=== PATIENT | male | born 1980 | race African-American/Black ===

== ENCOUNTER 2024-12-27 13:08 | Emergency (ER) | payer SELFPAY ==
--- NOTE | 2024-12-27 14:00 | RAD REPORT ---
EXAM: Chest Single View HISTORY: Congestion;Cough;Fever COMPARISON: None. FINDINGS: LUNGS/PLEURA: Very mild nodularity noted at the right lung base. MEDIASTINUM: The mediastinal silhouette is within normal limits. CARDIAC: The cardiac silhouette is within normal limits. UPPER ABDOMEN: No significant abnormality. BONES: No acute abnormality. LINES/TUBES/OTHER: N/A IMPRESSION: Very mild right lower lobe nodularity could reflect mild infection. No consolidative pneumonia or blanca ma.
[2024-12-27] MEDS ORDERED: NA CHLORIDE 0.9% 1,000 ML ONE (14:20)
[2024-12-27 14:32] LABS: Absolute Basophils 0.1 K/uL (0-0.5); Absolute Eosinophils 0.1 K/uL (0-0.5); Absolute Lymphocytes (CBC) 4.3 K/uL (0.7-4.9); Absolute Monocytes 0.9 K/uL (0.1-1.3); Basophils % 0.7 % (0-1.3); Eosinophils % 0.9 % (0-4.4); Hematocrit 42.1 % (39.6-49.0); Hemoglobin 15.4 g/dL (13.6-17.9); MCH 32.1 pg (27.0-35.0); MCHC 36.6 g/dL (32.0-36.0); MCV 87.9 fL (80-100); MPV 7.9 fL (7.6-11.3); Monocytes % 6.7 % (3.3-12.3); Neutrophils % 59.7 % (41.7-73.7); Nucleated Red Blood Cells % 0.1 % (0-0); Platelets 184 thou/uL (152-406); RBC Red Blood Cell Count 4.79 M/uL (4.33-5.43); Red Cell Distribution Width 13.3 % (12.1-15.2)
[2024-12-27 14:44] LABS: PT Prothrombin Time 13.5 SECONDS (9.4-12.5); PTT, Activated Partial Thromb 30.1 SECONDS (24.3-36.9); Protime INR 1.29
[2024-12-27 14:47] LABS: SARS-CoV-2 Antigen CONTROL BLUE LINE VIS/BG OK; SARS-CoV-2 Antigen Rapid Res Negative (Negative)
[2024-12-27 14:49] LABS: Albumin 2.6 g/dL (3.4-5.0); Albumin/Globulin Ratio 0.5 (1.1-1.8); Anion Gap 10.9 mEq/L (5.0-15.0); Bilirubin Total 0.6 mg/dL (0.2-1.0); Globulin 5.7 g/dL (2.3-3.5); Potassium 3.9 mEq/L (3.5-5.1); Protein, Total 8.3 g/dL (6.4-8.2)
[2024-12-27] MEDS ORDERED: NA CHLORIDE 0.9% 250 ML ONE (15:40)
[2024-12-27] MEDS ORDERED: IPRATROPIUM BROM 0.5MG/2.5ML ONE (15:40)
[2024-12-27] MEDS ORDERED: METHYLPREDNISOLONE 40 MG INJ ONE (15:40)
[2024-12-27] MEDS ORDERED: CEFTRIAXONE 1000 MG/VIAL ONE (15:40)
[2024-12-27] MEDS ORDERED: AZITHROMYCIN 500 MG INJ IVPB ONE (15:40)
[2024-12-27] MEDS ORDERED: ALBUTEROL 2.5 MG/3 ML NEB SOL ONE (15:40)
[2024-12-27] MEDS ORDERED: DICYCLOMINE HCL 20 MG/2 ML AMP IM ONE (16:28)
[2024-12-27] MEDS ORDERED: ONDANSETRON 4 MG/2 ML VIAL ONE (17:05)
--- NOTE | 2024-12-27 17:35 | ER ---
Nurse's Notes [facility] Name: Linden Khoury Age: 44 yrs Sex: Male : 1980 Arrival Date: 12/27/2024 Time: 13:08 Bed 12 Private MD: Diagnosis: Pneumonia, unspecified organism Presentation: 12/27 13:17 Chief complaint: Patient states: Fever, cough, congestion, seating, fatigue, SOB for 8 ll1 days. Fever 102 at home. Coronavirus screen: Client denies travel out of the [place] in the last 14 days. congestion, cough unrelated to allergies, fatigue, Client presents with at least one sign or symptom that may indicate coronavirus-19. Standard/surgical mask placed on the client. Ebola Screen: Patient denies travel to an Ebola-affected area in the 21 days before illness onset. Initial Sepsis Screen: Does the patient meet any 2 criteria? No. Patient's initial sepsis screen is negative. Does the patient have a suspected source of infection? No. Patient's initial sepsis screen is negative. Risk Assessment: Do you want to hurt yourself or someone else? Patient reports no desire to harm self or others. Onset of symptoms was December 19, 2024. 13:17 Method Of Arrival: Ambulatory ll1 13:17 Acuity: SAAD 4 ll1 Historical: - Allergies: 13:15 No Known Allergies; ll1 - Home Meds: 13:15 victarvi [Active]; Lexapro Oral [Active]; vit D [Active]; ll1 - PMHx: 13:36 HIV positive; Hepatitis; sb4 - PSHx: 13:15 None; ll1 - Immunization history:: Adult Immunizations up to date. - Infectious Disease History:: Denies. - Social history:: Smoking status: Patient reports the use of cigarette tobacco products, denies chronic smoking, but will smoke occasionally. Screenin:40 [facility] ED Fall Risk Assessment (Adult) History of falling in the last 3 months, aa5 including since admission No falls in past 3 months (0 pts) Confusion or Disorientation No (0 pts) Intoxicated or Sedated No (0 pts) Impaired Gait No (0 pts) Mobility Assist Device Used No (0 pt) Altered Elimination No (0 pt) Score/Fall Risk Level 0 - 2 = Low Risk Oriented to surroundings, Maintained a safe environment, Educated pt \T\ family on fall prevention, incl call for assistance when getting out of bed. Abuse screen: Denies threats or abuse. Nutritional screening: No deficits noted. Tuberculosis screening: No symptoms or risk factors identified. Assessment: 14:20 General: Appears uncomfortable, Behavior is calm, cooperative, Reports chills. Pain: aa5 Denies pain. Neuro: Level of Consciousness is awake, alert, obeys commands, Oriented to person, place, time, situation. Cardiovascular: Heart tones S1 S2 present Rhythm is regular. Respiratory: Reports cough Airway is patent Respiratory effort is even, unlabored, Respiratory pattern is regular, symmetrical. GI: Abdomen is non-distended, Bowel sounds present X 4 quads. Abd is soft and non tender X 4 quads. : No signs and/or symptoms were reported regarding the genitourinary system. EENT: Reports nasal congestion. Derm: Skin is dry, Skin is normal, Skin temperature is warm. Musculoskeletal: Range of motion: intact in all extremities. 15:40 Neuro: Level of Consciousness is awake, alert, obeys commands, Oriented to person, aa5 place, time, situation. Respiratory: Airway is patent Respiratory effort is even, unlabored, Respiratory pattern is regular, symmetrical. Derm: Skin is dry, Skin is normal, Skin temperature is warm. 16:30 Neuro: Level of Consciousness is awake, alert, obeys commands, Oriented to person, aa5 place, time, situation. Respiratory: Airway is patent Respiratory effort is even, unlabored, Respiratory pattern is regular, symmetrical. Derm: Skin is dry, Skin is normal, Skin temperature is warm. 16:59 Reassessment: Pt sleeping . aa5 17:20 Reassessment: Pt sleeping. . aa5 17:20 Reassessment: Patient states feeling better. Patient states symptoms have improved. aa5 17:40 Reassessment: Arleen MARQUEZ at [facility] called for update, will be here in 30 mins to hb pickup patient. Vital Signs: 13:17 BP 127 / 93; Pulse 98; Resp 18; Temp 99; Pulse Ox 99% on R/A; Weight 77.11 kg; Height 5 ll1 ft. 8 in. ; Pain 8/10; 15:30 BP 103 / 69; Pulse 102; Resp 20 S; Temp 99.1(O); Pulse Ox 98% on R/A; aa5 16:30 BP 126 / 70; Pulse 100; Resp 18 S; Temp 99.2(O); Pulse Ox 98% on R/A; aa5 17:20 BP 124 / 70; Pulse 88; Resp 19 S; Temp 99(O); Pulse Ox 99% on R/A; aa5 13:17 Body Mass Index 25.85 (77.11 kg, 172.72 cm) ll1 13:17 Pain Scale: Adult ll1 ED Course: 13:12 Patient arrived in ED. sj2 13:12 Linda Greenfield PA-C is PHCP. sb4 13:12 Uriel Florence MD is Attending Physician. sb4 13:18 Triage completed. ll1 13:18 Arm band placed on Patient placed in an exam room, on a stretcher. ll1 13:49 Mattie Brewster, RN is Primary Nurse. aa5 13:56 Chest Single View XRAY In Process Unspecified. EDMS 14:01 SARS RAPID Sent. hb 14:01 Flu Sent. hb 14:05 First set of blood cultures drawn by me. aa5 14:15 Patient has correct armband on for positive identification. Bed in low position. Call aa5 light in reach. Side rails up X2. Client placed on continuous cardiac and pulse oximetry monitoring. NIBP monitoring applied. cleaning crew member on. Pulse ox on. NIBP on. 14:15 Initial lab(s) drawn, by me, sent to lab. Second set of blood cultures drawn by me. aa5 14:18 Inserted saline lock: 20 gauge in left forearm, using aseptic technique. Flushed with aa5 10 mL NS. 17:48 No provider procedures requiring assistance completed. IV discontinued, intact, hb bleeding controlled, No redness/swelling at site. Pressure dressing applied. Administered Medications: 14:20 Drug: NS 0.9% IV 1000 ml IV at 1 bolus Per protocol; to be given as a bolus over 60 aa5 minutes Route: IV; Rate: 1 bolus; Site: left forearm; 15:40 Follow up: IV Status: Completed infusion; IV Intake: 1000ml aa5 15:40 Drug: Rocephin IV 1 grams IV at calculated rate once; Given slow IV push per pharmacy aa5 instructions Route: IV; Rate: calculated rate; Site: left forearm; 15:45 Follow up: Response: No adverse reaction; IV Status: Completed infusion aa5 15:40 Drug: MethylPrednisoLONE IVP 60 mg IVP once Route: IVP; Site: left forearm; aa5 15:50 Follow up: Response: No adverse reaction aa5 15:50 Drug: AZITHromycin IVPB 500 mg IVPB once over 1 hrs; (mix in 250 mL NS) Route: IVPB; aa5 Infused Over: 1 hrs; Site: left forearm; 16:59 Follow up: IV Status: Completed infusion; IV Intake: 250ml aa5 15:50 Drug: DuoNeb Nebulize (3:1) (2.5 mg - 0.5 mg) 3 ml Nebulizer once Route: Nebulizer; aa5 16:00 Follow up: Response: No adverse reaction aa5 16:50 Not Given (Patient Refused): [id number] mg IM once aa5 17:20 Drug: Ondansetron IVP 4 mg IVP once; over 2 minutes Route: IVP; Site: left forearm; aa5 17:25 Follow up: Response: No adverse reaction aa5 Medication: 17:20 VIS not applicable for this client. aa5 Intake: 15:40 IV: 1000ml; Total: 1000ml. aa5 16:59 IV: 250ml; Total: 1250ml. aa5 Outcome: 17:35 Discharge ordered by . sb4 17:48 Discharged to home ambulatory, hb 17:48 Condition: stable 17:48 Discharge instructions given to patient, Instructed on discharge instructions, follow up and referral plans. medication usage, Demonstrated understanding of instructions, follow-up care, medications, Prescriptions given X 4, 18:01 Patient left the ED. hb Signatures: Dispatcher [employer] EDMS Mattie Brewster RN RN aa5 Charity Benton RN RN hb Lewis, Lynsay, RN RN ll1 Linda Greenfield PA-C PAJennifer sb4 Mekhi Carmona2 Corrections: (The following items were deleted from the chart) 13:36 13:15 PMHx: None; ll1 sb4 19:03 15:40 Patient has correct armband on for positive identification. Bed in low position. aa5 Call light in reach. Side rails up X2. aa5 19:03 15:40 Client placed on continuous cardiac and pulse oximetry monitoring. NIBP aa5 monitoring applied. cleaning crew member on. Pulse ox on. NIBP on. aa5
--- NOTE | 2024-12-27 17:35 | EDPHYS ---
Physician Documentation [facility] Name: Linden Khoury Age: 44 yrs Sex: Male : 1980 Arrival Date: 12/27/2024 Time: 13:08 Bed 12 Private MD: ED Physician Uriel Florence HPI: 12/27 13:26 This 44 yrs old Black Male presents to ER via Ambulatory with complaints of Fever, Flu sb4 Symptoms. 13:26 patient reports cough, congestion, sore throat, flu like symptoms, fever x 1 week. 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 reports some sob. has taken some ibuprofen and dayquil intermittently. Historical: - Allergies: 13:15 No Known Allergies; ll1 - Home Meds: 13:15 victarvi [Active]; Lexapro Oral [Active]; vit D [Active]; ll1 - PMHx: 13:36 HIV positive; Hepatitis; sb4 - PSHx: 13:15 None; ll1 - Immunization history:: Adult Immunizations up to date. - Infectious Disease History:: Denies. - Social history:: Smoking status: Patient reports the use of cigarette tobacco products, denies chronic smoking, but will smoke occasionally. ROS: 13:26 Cardiovascular: Negative for chest pain, palpitations, and edema, sb4 13:26 Constitutional: Positive for body aches, chills, fatigue, fever, malaise, 13:26 ENT: Positive for sore throat, 13:26 Respiratory: Positive for cough, shortness of breath, 13:26 Abdomen/GI: Positive for nausea, 13:26 All other systems are negative, Exam: 13:31 Head/Face: Normocephalic, atraumatic. Eyes: Extra-ocular motions intact. Periorbital sb4 areas with no swelling, redness, or edema. ENT: Mucous membranes moist. Cardiovascular: Regular rate and rhythm with a normal S1 and S2. Abdomen/GI: Soft, non-tender, no distension. Skin: Warm, dry with normal turgor. Normal color with no rashes, no lesions, and no evidence of cellulitis. 13:31 Constitutional: The patient appears alert, awake, obviously ill, uncomfortable, 13:31 Respiratory: the patient does not display signs of respiratory distress, Respirations: normal, Breath sounds: rhonchi, that are mild, are scattered, Vital Signs: 13:17 BP 127 / 93; Pulse 98; Resp 18; Temp 99; Pulse Ox 99% on R/A; Weight 77.11 kg; Height 5 ll1 ft. 8 in. ; Pain 8/10; 15:30 BP 103 / 69; Pulse 102; Resp 20 S; Temp 99.1(O); Pulse Ox 98% on R/A; aa5 16:30 BP 126 / 70; Pulse 100; Resp 18 S; Temp 99.2(O); Pulse Ox 98% on R/A; aa5 17:20 BP 124 / 70; Pulse 88; Resp 19 S; Temp 99(O); Pulse Ox 99% on R/A; aa5 13:17 Body Mass Index 25.85 (77.11 kg, 172.72 cm) ll1 13:17 Pain Scale: Adult ll1 MDM: 13:12 Medical Screening Exam initiated sb4 16:21 ED course: patient is now complaining of abdominal cramping and nausea after receiving sb4 medications. 17:15 Data reviewed: vital signs, nurses notes, lab test result(s), radiologic studies, and sb4 as a result, I will discharge patient. Counseling: I had a detailed discussion with the patient and/or guardian regarding the historical points, exam findings, and any diagnostic results supporting the discharge/admit diagnosis, lab results, radiology results, the need for outpatient follow up, for definitive care, to return to the emergency department if symptoms worsen or persist or if there are any questions or concerns that arise at home. 12/27 13:25 Order name: Blood Culture Adult (2) sb4 12/27 13:25 Order name: CBC with Diff; Complete Time: 14:46 sb4 12/27 13:25 Order name: CMP; Complete Time: 14:55 sb4 12/27 13:25 Order name: Lactate w/ 2H reflex if indic.; Complete Time: 14:55 sb4 12/27 13:25 Order name: Protime (+inr); Complete Time: 14:46 sb4 12/27 13:25 Order name: Ptt, Activated; Complete Time: 14:46 sb4 12/27 13:25 Order name: SARS RAPID; Complete Time: 14:55 sb4 01/31 13:25 Order name: Flu; Complete Time: 14:55 4 12/27 13:25 Order name: Chest Single View XRAY; Complete Time: 14:03 12/27 13:25 Order name: Cardiac monitoring; Complete Time: 14:18 12/27 13:25 Order name: IV Saline Lock - Large Bore; Complete Time: 14:18 4 12/27 13:25 Order name: Labs collected and sent; Complete Time: 14:18 12/27 13:25 Order name: O2 Per Protocol; Complete Time: 13:50 12/27 13:25 Order name: O2 Sat Monitoring; Complete Time: 13:50 12/27 13:25 Order name: Vital Signs; Complete Time: 13:50 sb4 Administered Medications: 14:20 Drug: NS 0.9% IV 1000 ml IV at 1 bolus Per protocol; to be given as a bolus over 60 aa5 minutes Route: IV; Rate: 1 bolus; Site: left forearm; 15:40 Follow up: IV Status: Completed infusion; IV Intake: 1000ml aa5 15:40 Drug: Rocephin IV 1 grams IV at calculated rate once; Given slow IV push per pharmacy aa5 instructions Route: IV; Rate: calculated rate; Site: left forearm; 15:45 Follow up: Response: No adverse reaction; IV Status: Completed infusion aa5 15:40 Drug: MethylPrednisoLONE IVP 60 mg IVP once Route: IVP; Site: left forearm; aa5 15:50 Follow up: Response: No adverse reaction aa5 15:50 Drug: AZITHromycin IVPB 500 mg IVPB once over 1 hrs; (mix in 250 mL NS) Route: IVPB; aa5 Infused Over: 1 hrs; Site: left forearm; 16:59 Follow up: IV Status: Completed infusion; IV Intake: 250ml aa5 15:50 Drug: DuoNeb Nebulize (3:1) (2.5 mg - 0.5 mg) 3 ml Nebulizer once Route: Nebulizer; aa5 16:00 Follow up: Response: No adverse reaction aa5 16:50 Not Given (Patient Refused): [id number] mg IM once aa5 17:20 Drug: Ondansetron IVP 4 mg IVP once; over 2 minutes Route: IVP; Site: left forearm; aa5 17:25 Follow up: Response: No adverse reaction aa5 Disposition Summary: 12/27/24 17:35 Discharge Ordered Notes: Location: Home sb4 Problem: new sb4 Symptoms: have improved sb4 Condition: Stable sb4 Diagnosis - Pneumonia, unspecified organism sb4 Followup: sb4 - With: Emergency Department - When: As needed - Reason: Trouble breathing, Worsening of condition Discharge Instructions: - Discharge Summary Sheet sb4 - Community-Acquired Pneumonia, Adult sb4 Forms: - Antibiotic Education sb4 - Patient Portal Instructions sb4 - Leadership Thank You Letter sb4 Prescriptions: - albuterol sulfate 90 mcg/actuation Inhalation HFA Aerosol Inhaler - inhale 1 puff INHALATION route every 6 hours PRN shortness of breath or sb4 wheezing; 1 Applicator; Refills: 0, Product Selection Permitted - Amoxicillin 875 mg Oral Tablet - take 1 tablet ORAL route every 12 hours for 10 days; 20 tablet; Refills: 0, sb4 Product Selection Permitted - Prednisone 20 mg Oral Tablet - take 1 tablet ORAL route once daily for 5 days; 5 tablet; Refills: 0, Product sb4 Selection Permitted - Zithromax 500 mg Oral Tablet - take 1 tablet ORAL route once daily for 3 days; 3 tablet; Refills: 0, Product sb4 Selection Permitted Signatures: Dispatcher [employer] Mattie Escalante RN RN aa5 Ry Rosado RN RN ll1 Linda Greenfield PA-C PAJennifer sb4 Corrections: (The following items were deleted from the chart) 13:26 13:26 BLOOD CULTURE*+BA.LAB.BRZ ordered. EDMS EDMS 13: 13:26 CBC+H.LAB.BRZ ordered. EDMS EDMS 13: 13:26 COMPREHENSIVE METABOLIC PANEL+C.LAB.BRZ ordered. EDMS EDMS 13: 13:26 LACTATE+C.LAB.BRZ ordered. EDMS EDMS 13:26 13:26 PROTIME (+INR)+COAG.LAB.BRZ ordered. EDMS EDMS 13: 13:26 PTT, ACTIVATED+COAG.LAB.BRZ ordered. EDMS EDMS 13:26 13:26 SARS-COV-2 Antigen Rapid+I.LAB.BRZ ordered. EDMS EDMS 13: 13:26 Influenza Screen (A \T\ B)+BA.LAB.BRZ ordered. EDMS EDMS 13:26 Chest Single View+RAD.RAD.BRZ ordered. EDMS EDMS 13:36 13:15 PMHx: None; ll1 sb4
[2024-12-27 18:15] VITALS: BP 126/70; TEMP 99.2; O2SAT 98
== END 2024-12-27 18:01 | disposition home or self-care (01) ==
LOC: ER 13:08
DX: J18.9 Pneumonia, unspecified organism (principal); F17.210 Nicotine dependence, cigarettes, uncomplicated; Z11.52 Encounter for screening for COVID-19; Z21 Asymptomatic human immunodeficiency virus [HIV] infection status
CPT/HCPCS: 36415; 71045; 80053; 83605; 85025; 85610; 85730; 87040; 87804; 87811; 96361; 96365; 96375; 99285; J0500; J0696; J2405; J2919; J7030; J7050; J7613; J7644